=== PATIENT | male | born 1975 | race African-American/Black ===

== ENCOUNTER 2019-04-27 03:38 | Emergency (ER) | payer MEDICAID ==
[~2019-04-27] VITALS: Ht 182.9 cm; Wt 105.0 kg
[2019-04-27] MEDS ORDERED: ASPIRIN 81MG TABLET PO ONE (04:45)
[2019-04-27] MEDS ORDERED: KETOROLAC 30MG/ML VIAL IV ONE (05:00)
[2019-04-27] MEDS ORDERED: ONDANSETRON HCL 4MG/2ML INJ IV ONE (05:00)
[2019-04-27 05:28] LABS: CHLORIDE 99 mEq/L (98-107)
[2019-04-27 05:31] LABS: BASOPHILS % 0.3 % (0.0-2.0); HEMATOCRIT. 46.3 % (42.0-52.0); HEMOGLOBIN. 16.3 g/dL (14.0-18.0); LYMPHOCYTES % 16.3 % (20.0-50.0); MEAN CORPUSCULAR HEMOGLOBIN 32.3 pg (28.0-32.0); MEAN CORPUSCULAR VOLUME 91.9 fL (80.0-94.0); MEAN PLATELET VOLUME 7.7 fl (7.4-10.4); NEUTROPHILS % 77.4 % (40.0-76.0); PLATELET 266 x1000/uL (130-400); RED BLOOD CELL COUNT 5.04 mill/uL (4.7-6.1); RED CELL DISTRIBUTION WIDTH 13.1 % (11.6-14.6)
[2019-04-27] MEDS ORDERED: FAMOTIDINE 20MG/2ML VIAL IV ONE (06:30)
[2019-04-27] MEDS ORDERED: MAGNESIUM/ALUMINUM HYDROXIDE/SIMETHICONE 30ML UDC PO ONE (06:30)
[2019-04-27] MEDS ORDERED: MORPHINE SULFATE 2 MG/ML CPJ (NOT FOR IM USE) IV ONE (06:30)
[2019-04-27] MEDS ORDERED: METOCLOPRAMIDE HCL 10MG/2ML VIAL IV ONE (06:30)
[2019-04-27] MEDS ORDERED: IOHEXOL-300 100 ML BOTTLE ONE (07:02)
[2019-04-27 07:30] VITALS: BP 187/98
== END 2019-04-27 07:51 | disposition home or self-care (01) ==
LOC: ER 03:38
DX: R10.13 Epigastric pain (principal); E11.9 Type 2 diabetes mellitus without complications; I10 Essential (primary) hypertension; E78.00 Pure hypercholesterolemia, unspecified; F12.10 Cannabis abuse, uncomplicated; Z87.891 Personal history of nicotine dependence
CPT/HCPCS: 36415; 71045; 74177; 80053; 83690; 83880; 84484; 85025; 93005; 96374; 96375; 99284; J1885; J2270; J2405; J2765; J3490; Q9967; Z7610